=== PATIENT | male | born 1990 | race Caucasian/White ===

== ENCOUNTER 2017-01-04 21:23 | Emergency (ER) | payer SELFPAY ==
[~2017-01-04] VITALS: Ht 177.8 cm; Wt 66.0 kg
[2017-01-04 21:26] VITALS: BP 162/100; PULSE 60; RESP 18; TEMP 98; O2SAT 98
[2017-01-04] MEDS ORDERED: TRAM50TA PO (21:54)
[2017-01-04] MEDS ORDERED: OFLO0.3D9 LEFT EAR (21:54)
[2017-01-04] MEDS ORDERED: IBUPROFEN 800 MG TAB PO ONE (22:00)
[2017-01-04] MEDS ORDERED: ACETAMINOPHEN/HYDROcodone 325 MG/5 MG TAB PO ONE (22:00)
--- NOTE | 2017-01-04 22:00 | PD ---
HPI Chief Complaint: ENT Complaint Time Seen by Provider: 21:45 Travel History International Travel<30 days: No Contact w/Intl Traveler<30days: No Traveled to known affect area: No History of Present Illness HPI 26-year-old male presents for evaluation of left ear pain. Prior to arrival the patient reports that he was snorkeling at a [place], proximally 15 feet deep , when he felt intense pressure in his ear. He has had pressure and sharp pain in his left ear since then. He has had some muffled hearing as well. Denies tinnitus, denies bloody drainage. His right ear feels normal. He has no other complaints at this time. PFSH Past Medical History Medical History: Denies Significant Hx Tetanus Vaccination: Unknown Influenza Vaccination: No Past Surgical History Appendectomy: Yes Social History Alcohol Use: Yes (rare) Tobacco Use: No Substance Use: No Allergies-Medications (Allergen,Severity, Reaction): Coded Allergies: No Known Allergies (Unverified , 01/04/17) Reported Meds & Prescriptions Reported Meds & Active Scripts Active Ofloxacin Otic Drops 0.3 % Drops 10 Drop LEFT EAR BID 14 Days Tramadol (Tramadol HCl) 50 Mg Tab 50 Mg PO Q6H PRN Review of Systems Except as stated in HPI: all other systems reviewed are Neg Physical Exam Narrative GENERAL: Well-nourished male in no acute distress SKIN: Warm and dry. HEAD: Atraumatic. Normocephalic. EYES: Pupils equal and round. No scleral icterus. No injection or drainage. ENT: No nasal bleeding or discharge. Mucous membranes pink and moist. Left tympanic membrane perforation noted with little bit of blood in the ear canal. Right tympanic membrane appears intact. NECK: Trachea midline. No JVD. CARDIOVASCULAR: Regular rate and rhythm. No murmur appreciated. RESPIRATORY: No accessory muscle use. Clear to auscultation. Breath sounds equal bilaterally. Data Data Last Documented VS Vital Signs Date Time Temp Pulse Resp B/P Pulse Ox O2 Delivery O2 Flow Rate FiO2 01/04/17 21:51 14 01/04/17 21:26 98.0 60 162/100 98 Room Air Orders Acetamin-Hydrocod 325-5 Mg ([place] 5-325 (01/04/17 22:00) Ibuprofen (Motrin) (01/04/17 22:00) [facility] Medical Decision Making Medical Screen Exam Complete: Yes Emergency Medical Condition: Yes Medical Record Reviewed: Yes Differential Diagnosis Tympanic membrane perforation, otitis externa, otitis media Narrative Course Examination is consistent with left tympanic membrane perforation. The patient will be given a dose of Lortab and ibuprofen here in the ED and discharged with ofloxacin, tramadol for breakthrough pain. Encouraged to follow-up with primary care physician in one to 2 weeks. Diagnosis Primary Impression: Tympanic membrane rupture Qualified Code: H72.92 - Perforation of left tympanic membrane Referrals: [facility] Additional Instructions: Use the medication as prescribed. Take [id number] Tylenol or ibuprofen for pain, take tramadol for breakthrough pain. Avoid getting any water in your left ear canal. Follow-up with primary care physician in one to 2 weeks for recheck. Return for any emergent medical conditions. Med/Other Pt SpecificInfo: Prescription(s) given Scripts Ofloxacin Otic Drops 0.3 % Drops10 Drop LEFT EAR BID 14 Days Ref 0 Prov:Don Brizuela MD 01/04/17 Tramadol 50 Mg Tab50 Mg PO Q6H PRN (PAIN) #15 TAB Ref 0 Prov:Don Brizuela MD 01/04/17 Disposition: 01 DISCHARGE HOME Condition: Stable Guy Fernandez Jan 04, 2017 22:00
== END 2017-01-04 22:22 | disposition home or self-care (01) ==
LOC: NEPD 21:23
DX: H72.92 Unspecified perforation of tympanic membrane, left ear (principal)
CPT/HCPCS: 99284